=== PATIENT | male | born 1965 | race Caucasian/White ===

== ENCOUNTER → 2024-01-09 | Outpatient (CLI) | payer OTHER ==
[~2024-01-09] MED LIST: ALLI60 MG; AMBIEN 10MG10 MG PO; GLUCOPHAGE500 MG/TAB PO; K-TAB20 PO; LIPITOR20 MG PO; MULTIPLE VITAMI1 CAP PO; PRIL40 PO; PRINZIDE 12.5 M1 TAB PO; ROCEPHIN 2GM VIAL21 IJ; ROCEPHIN 2GM VIAL21 IV; SINGULAIR 110 MG/TAB PO; VITAMIN D31000 I1 PO; ZYLOPRIM 300MG300 MG PO; ZYRTEC 10MG10 MG PO
[2024-01-09 09:47] LABS: HEMATOCRIT 41.2 % (42.0-52.0); HEMOGLOBIN 13.6 g/dl (13.5-18.0); MEAN CELL VOLUME 95 fl (80.0-100.0); MEAN CORPUSCULAR HEMOGLOBIN 31 pg (27-31); MEAN CORPUSCULAR HGB CONC 33 g/dl (33.0-37.0); MEAN PLATELET VOLUME 10.5 fl (7.4-10.4); PLATELET COUNT 190 K/mm3 (130-400); RED BLOOD COUNT 4.36 M/mm3 (4.20-5.60)
[2024-01-09 10:32] LABS: EOSINOPHIL 8 % (0-4); LYMPHOCYTE 38 % (20.0-51.0); NEUTROPHILS 45 % (42.0-75.2); PLATELET ESTIMATE NORMAL (NORMAL)
== END ==
LOC: COL.LAB 09:04
PROVIDERS: Orthopaedic Surgery Sports Medicine
DX: Z96.651 Presence of right artificial knee joint (principal)